=== PATIENT | male | born 1990 | race Caucasian/White ===

== ENCOUNTER → 2016-07-31 | Outpatient (CLI) | payer BC ==
[2016-07-31 18:47] VITALS: BP 110/68
== END ==
LOC: MHUC 18:09
PROVIDERS: ATTEND Physician Assistant Medical
DX: J06.9 Acute upper respiratory infection, unspecified (principal)
CPT/HCPCS: 99213

== ENCOUNTER 2016-08-01 13:00 | Outpatient (RCR) | payer BC, OTHER | END 2016-08-20 09:15 | disposition home or self-care (01) | LOC: PT 13:00 | PROVIDERS: ATTEND Nurse Practitioner Family | DX: S46.812D Strain of other muscles, fascia and tendons at shoulder and upper arm level, left arm, subsequent encounter (principal); S29.012D Strain of muscle and tendon of back wall of thorax, subsequent encounter; X50.9XXD Other and unspecified overexertion or strenuous movements or postures, subsequent encounter ==